=== PATIENT | female | born 1945 | race African-American/Black ===

== ENCOUNTER 2023-08-04 19:50 | Emergency (ER) | payer MEDICARE, OTHER, SELFPAY ==
[2023-08-04] VITALS (10 sets, daily range): BP systolic 168–215; BP diastolic 74–110; BMI 22.9
--- NOTE | 2023-08-04 20:40 | ED.GENMED ---
Addendum entered and electronically signed by Jonathon Gibson PA-C 08/08/23 15:13:
Urine culture demonstrates greater than 100,000 colony-forming units of E. coli. Attempted to call patient to relay this information however there was no answer. Left message
Original Note:
History of Present Illness
General
Chief Complaint: Dizziness
Source: patient
Exam Limitations: none
Time Seen by Provider: 08/04/23 20:19
Nursing documentation reviewed up to this point in time: agreed with
Travel History
Have you had any contact with someone who has COVID-19?: No
Do you have any symptoms of coronavirus? Fever > 100 degrees, chills, cough, shortness of breath, sore throat, loss of taste or smell, muscle aches, or headache?: No
History of Present Illness
History of Present Illness:
77-year-old female presents with dizziness onset yesterday showed a long day, her home felt dizzy worse when she stood and with some head movement, no dark or bloody stools symptoms returned today no headache no slurred speech no arm or leg
weakness, for a month or 2 she has a pain in her left arm with exertion tells me she had a slightly abnormal stress test on her most recent stress test she has a known valvular issue, suffers from high blood pressure, she has no headache she admits
to not sleeping well, related to her daughter in [place] being in a coma through the fall and then dying recently she has been dealing with the estate
Past History
Past History
ED Past Medical History: HTN and Valvular disease; Negative CAD
ED Past Surgical History: Cardiac (Cardiac catheter that revealed clean coronaries ) and
Social History
Tobacco: Non-smoker
Alcohol: None
Drug: None
Living: with family
Employment: Employed
Family History
Family History: Other (Daughter passed recently after protracted illness)
Review of Systems
Review of Systems
All Other Systems: Not applicable
Constitutional: Reports sleep disturbance; Denies fever or fatigue
EENT: Reports no symptoms
Respiratory: Reports no symptoms
Cardiac: Reports chest pain (Arm pain with exertion for months)
ABD/GI: Reports no symptoms; Denies abdominal pain, vomiting, bloody stools or black stools
: Reports no symptoms
Neurological: Reports dizzy; Denies headache or weakness
Hematologic/Lymphatic: Reports no symptoms; Denies bleeding or bruising
Psychiatric: Reports no symptoms
Phy Exam
Physical Exam
Physical Exam:
Physical Exam
General: no apparent distress, not acutely ill
Neck: No jaundice
Heart: Regular soft murmur
Lungs: no acute respiratory distress. clear bilaterally
Abdomen: Not tender
Neuro: alert and oriented. no focal neurological deficits
Skin: no rash
Psychiatric: well kept. interactive and cooperative
Extremities: no edema. no calf tenderness.
Scores
Heart Score for Chest Pain Patients
STEMI patient?: No
History: Moderately Suspicious
ECG: Normal
Age: >/= 65 years
Risk Factors: 1 or 2 Risk Factors
Troponin: </= Normal Limit
Heart Score for Chest Pain Patients: 4
Heart Score Risk: 20.3% MACE over next 6 weeks
Course
Orders/Labs/Results
Orders:
Orders
08/04/23 19:56
Electrocardiogram (*1) Urgent
Reason for Study: Vertigo / Dizzy
08/04/23 19:57
EKG- Treatment ONCE
08/04/23 20:38
Add On- LAB Urgent
Tests Added?: pBNP
HydrALAZINE [Apresoline] 5 mg IV NOW STA
08/04/23 20:53
Complete Blood Count/With Diff Urgent
Comprehensive Metabolic Panel Urgent
NT-proBNP Urgent
Comment: ADD ON
Troponin I Urgent
Urinalysis Reflex To Culture Urgent
Date Specimen was Collected: 08/04/23
Time Specimen was Collected: 20:00
Urine Microscopic Reflex Cult Urgent
Urine Culture Urgent
KELLI Source: U
Specimen Description:
Date Specimen was Collected: 08/04/23
Time Specimen was Collected: 20:00
08/04/23 22:31
Losartan [Cozaar] 50 mg PO NOW STA
Abnormal Lab Results
08/04/23
20:53
WBC 4.7 L 10^3/uL
(4.8-10.8)
RBC 3.89 L 10^6/uL
(4.20-5.40)
Hct 35.1 L %
(37.0-47.0)
MCH 31.1 H pg
(27.0-31.0)
MPV 10.5 H fL
(7.4-10.4)
BUN 18 H mg/dl
(7-17)
Leukocyte Esterase Rfl 2+ A
(Negative)
Urine WBC (Reflex) 11-15 A /HPF
(0-5)
08/04/23 20:53
08/04/23 20:53
Vital Signs
Initial and Last Documented VS:
Initial Vital Signs
Temp Pulse Resp BP Pulse Ox
99 F 70 16 212/102 98
08/04/23 19:53 08/04/23 19:53 08/04/23 19:53 08/04/23 19:53 08/04/23 19:53
Last Documented Vital Signs
Temp Pulse Resp BP Pulse Ox
99 F 75 16 168/74 98
08/04/23 19:53 08/04/23 22:55 08/04/23 19:53 08/04/23 22:55 08/04/23 19:56
MDM/Problems Addressed
Differential Diagnosis Includes:
Positional vertigo electrolyte abnormality anemia arrhythmia doubt CVA or mass, may have angina is a subacute issue
Could be related to accelerated hypertension, also may have some degree of anxiety through the illness and of her daughter
MDM/Problems Addressed:
Dizziness
Chronic conditions affecting care:
Hypertension valvular
*Critical Care Note
Total Time (30-74mins, 75-104mins- exclusive of procedures): Not Applicable
Update Note
Update Note:
11:40 PM patient states she is feeling better labs are noted prior echo noted
Blood pressure improved
Patient tells me she has discussed her arm pain with her clinical nursing assistant
Also tells me that her head custodian has recommended that she take cayenne pepper for the arm pain which she keeps with her works well for her
ED Attending Note
-
Portions of this chart may have been created with voice recognition software.� Occasional wrong word or��sound alike� substitutions may have occurred due to the inherent limitations of voice recognition software.
Discharge Plan
Departure
Patient Disposition: Home (Routine Discharge)
Date of Disposition: 08/04/23
Time of Disposition: 23:43
Patient with high blood pressure during this ER visit?: Yes
Condition: Good
Discharge Problem:
Hypertension, Dizziness
Instructions: Dizziness, Nonvertigo, (DC), BLOOD PRESSURE, Chest Pain DCA Follow Up
Prescriptions:
No Action
losartan 50 mg Tablet
50 mg PO BID
Referrals:
Aric Germain DO [Family Provider] - Next open appointment
Philip Gould DO [Active] - Next open appointment
Interventions
Interventions:
*Risk Screen - Suicide Last Done: 08/04/23 19:53
*General Assessment Last Done: 08/04/23 19:53
*Neglect/Abuse Screening Last Done: 08/04/23 19:53
ED- Fall Risk Assessment Last Done: 08/04/23 20:19
*ED COVID-19 Vaccine History Last Done: 08/04/23 20:56
ED- Neurological Assessment Last Done: 08/04/23 20:19
ED Swallowing Screen Last Done: 08/04/23 20:19
Discharge Date and Time
Print Language: DANISH
[2023-08-04] MEDS: APRESOLINE 5 MG IV (20:45)
[2023-08-04 21:00] LABS: % Basophils 1.1 % (0-2); % Eosinophils 4.2 % (0-6); % Immature Granulocytes 0.2 % (0-0.5); % Lymphocytes 36.1 % (20.5-51.1); % Monocytes 6.1 % (1.7-9.3); % Neutrophils 52.3 % (42.2-75.2); Absolute Basophils 0.1 10^3/uL (0-0.2); Absolute Eosinophils 0.2 10^3/uL (0-0.7); Absolute Lymphocytes 1.7 10^3/uL (1.2-3.4); Absolute Monocytes 0.3 10^3/uL (0.1-0.6); Absolute Neutrophils 2.5 10^3/uL (1.4-6.5); Hematocrit 35.1 % (37.0-47.0); Hemoglobin 12.1 g/dL (12.0-16.0); Mean Corp Hgb Conc. 34.5 g/dL (33.0-37.0); Mean Corpuscular Hgb 31.1 pg (27.0-31.0); Mean Corpuscular Volume 90.2 fL (81.0-99.0); Mean Platelet Volume 10.5 fL (7.4-10.4); Nucleated Red Blood Cells % 0 %; Platelet Count 201 10^3/uL (130-400); Red Blood Cell Count 3.89 10^6/uL (4.20-5.40); Urine Albumin Negative (Neg - Trace); Urine Bilirubin Negative (Negative); Urine Character Clear (Clear); Urine Color Yellow; Urine Glucose Negative (Negative); Urine Ketone Negative (Negative); Urine Leukocyte 2+ (Negative); Urine Nitrite Negative (Negative); Urine Occult Blood Negative (Negative); Urine Urobilinogen Negative (Neg - 1+); White Blood Cell Count 4.7 10^3/uL (4.8-10.8)
[2023-08-04 21:13] LABS: ALT (SGPT) 13 U/L (0-35); AST (SGOT) 24 U/L (14-36); Albumin 4.4 g/dl (3.5-5.0); Alkaline Phosphatase 56 U/L (38-126); Blood Urea Nitrogen 18 mg/dl (7-17); Calcium 9.9 mg/dl (8.4-10.2); Carbon Dioxide 27 mmol/L (22-30); Chloride 101 mmol/L (98-107); Estimated Creatinine Clearance 73 ml/min; Glucose 90 mg/dl (70-99); Potassium 3.5 mmol/L (3.5-5.1); Sodium 138 mmol/L (135-145); Total Bilirubin 0.7 mg/dl (0.2-1.3); Total Protein 7.1 g/dl (6.3-8.2); eGFR > 60.00
[2023-08-04 21:15] LABS: Urine Red Blood Cell None Seen /HPF (0-2); Urine Squamous Cell 0-2 /LPF (Few); Urine Urothelial Cell 0-2 /LPF (FEW)
[2023-08-04 21:22] LABS: NT-proBNP 141 pg/ml; Troponin I 0.021 ng/ml
[2023-08-04] MEDS: COZAAR 50 MG PO (22:55)
[2023-08-05] VITALS: BP 161/72
[2023-08-05 00:20] VITALS: BP 161/72
== END 2023-08-05 00:20 | disposition home or self-care (01) ==
LOC: EMR 19:50
PROVIDERS: Emergency Medicine; EMERGENCY PHYSICIAN Emergency Medicine; FAMILY PHYSICIAN Family Medicine
DX: R42 Dizziness and giddiness (principal); I10 Essential (primary) hypertension
CPT/HCPCS: 99284; 96374; 80053; 81003; 81015; 83880; 84484; 85025; 87077; 87086; 87186; 93005

== ENCOUNTER → 2023-08-26 07:23 | Outpatient (REF) | payer MEDICARE, OTHER, SELFPAY | LOC: HWRCS 07:23 | PROVIDERS: ATTENDING PHYSICIAN Nuclear Medicine Nuclear Cardiology; FAMILY PHYSICIAN Family Medicine | DX: I10 Essential (primary) hypertension (principal); R93.1 Abnormal findings on diagnostic imaging of heart and coronary circulation; I34.0 Nonrheumatic mitral (valve) insufficiency | CPT/HCPCS: 93306 ==

== ENCOUNTER 2024-02-17 20:14 | Emergency (ER) | payer MEDICARE, OTHER, SELFPAY ==
[2024-02-17 20:19] VITALS: BP 208/107
[2024-02-17 20:39] LABS: % Basophils 1.3 % (0-2); % Eosinophils 7.7 % (0-6); % Immature Granulocytes 0.2 % (0-0.5); % Lymphocytes 44.8 % (20.5-51.1); % Monocytes 8.1 % (1.7-9.3); % Neutrophils 37.9 % (42.2-75.2); Absolute Basophils 0.1 10^3/uL (0-0.2); Absolute Eosinophils 0.4 10^3/uL (0-0.7); Absolute Lymphocytes 2.1 10^3/uL (1.2-3.4); Absolute Monocytes 0.4 10^3/uL (0.1-0.6); Absolute Neutrophils 1.8 10^3/uL (1.4-6.5); Hematocrit 36.4 % (37.0-47.0); Hemoglobin 12.7 g/dL (12.0-16.0); Mean Corp Hgb Conc. 34.9 g/dL (33.0-37.0); Mean Corpuscular Hgb 31.1 pg (27.0-31.0); Mean Platelet Volume 10.5 fL (7.4-10.4); Nucleated Red Blood Cells % 0 %; Platelet Count 230 10^3/uL (130-400); Red Blood Cell Count 4.09 10^6/uL (4.20-5.40); Red Cell Dist. Width 12.2 % (11.5-14.5); White Blood Cell Count 4.7 10^3/uL (4.8-10.8)
[2024-02-17 20:53] LABS: ALT (SGPT) 16 U/L (0-35); AST (SGOT) 25 U/L (14-36); Albumin 4.5 g/dl (3.5-5.0); Alkaline Phosphatase 50 U/L (38-126); Blood Urea Nitrogen 21 mg/dl (7-17); Calcium 9.8 mg/dl (8.4-10.2); Carbon Dioxide 29 mmol/L (22-30); Chloride 103 mmol/L (98-107); Glucose 89 mg/dl (70-99); Potassium 3.8 mmol/L (3.5-5.1); Sodium 141 mmol/L (135-145); Total Bilirubin 0.5 mg/dl (0.2-1.3); Total Protein 7.3 g/dl (6.3-8.2); eGFR > 60.00
[2024-02-17 21:01] LABS: NT-proBNP 166 pg/ml
[2024-02-17 23:34] VITALS: BP 200/85
[2024-02-18] VITALS: BP 200/99
[2024-02-18 00:13] LABS: Troponin I 0.016 ng/ml
--- NOTE | 2024-02-18 00:24 | ED.GENMED ---
History of Present Illness
General
Chief Complaint: Cough
Source: patient
Exam Limitations: none
Time Seen by Provider: 02/17/24 23:23
History of Present Illness
History of Present Illness:
This is a 78 year old female that comes in with c/o SOB. States that she has had this non productive cough. States that today she went up the steps and had to walk 1/2 a block to her car. States that by the time she got to her car she could hardly
get in the car as she was exhausted. States that she has had a cough and SOB. States that this all started year ago after she had to go to [place] for her daughter as she had TBI. States that her Daughter in June. States that she was
told by the public transit specialist that her body was under stress and that this was causing her cough. Denies any fever, chills, chest pain, abd pain, nausea, vomiting, diarrhea, headache, dizziness, urinary burning.
Past History
Past History
ED Past Medical History: HTN, Hypercholesterolemia, Valvular disease and Other (Glaucoma); Negative CAD
ED Past Surgical History: Cardiac (Cardiac catheter that revealed clean coronaries ) and
Social History
Tobacco: Non-smoker
Alcohol: None
Drug: None
Personal: Single
Living: alone
Employment: Employed
Family History
Family History: Other (Daughter passed recently after protracted illness)
Review of Systems
Review of Systems
All Other Systems: ROS reviewed and negative except as documented in HPI and ROS
Constitutional: Reports no symptoms; Denies fever or chills
EENT: Reports no symptoms
Respiratory: Reports cough and trouble breathing
Cardiac: Reports no symptoms; Denies chest pain
ABD/GI: Reports no symptoms; Denies abdominal pain, nausea, vomiting or diarrhea
: Reports no symptoms; Denies dysuria, frequency or urgency
Musculoskeletal: Reports no symptoms
Skin: Reports no symptoms
Neurological: Reports no symptoms; Denies dizzy or headache
Psychiatric: Reports no symptoms
Phy Exam
General Physical Exam
General Presentation: well appearing and no apparent distress
General age: appears stated age
General Skin: warm and dry
General Habitus: elderly
General Mental: alert
General Hydration: appears well hydrated
ENT Exam
ENT Exam: TM's normal, pharynx normal and neck supple
Eye Exam
Eye Exam: EOMI
Cardiovascular Exam
Cardiovascular Exam: regular rate/rhythm, no edema, no murmur and normal peripheral pulses
Pulmonary Exam
Pulmonary Exam: lungs clear, no respiratory distress, no rales, chest non tender, no crackles, no rhonchi, no wheezing and no cough
Gastrointestinal Exam
Gastrointestinal Exam: normal bowel sounds, non tender, soft, no organomegaly, no pulsatile mass and non distended
Musculoskeletal Exam
Musculoskeletal Exam: full ROM and no edema
Skin Exam
Skin Exam: normal color, warm/dry, no rash and no petechia
Psychiatric Exam
Psychiatric Exam: normal mood/affect
Course
Orders/Labs/Results
Orders:
Orders
02/17/24 20:22
Electrocardiogram (*1) Urgent
Reason for Study: Other
Other Reason for Exam: Respiratory Distress
Cardiac Monitoring- Treatment ONCE
EKG- Treatment ONCE
IV Insert/Care/Rem.- Treatment PRN
CR Chest - 2 Views Urgent
Comment:
Reason For Exam: respiratory distress
O2 Therapy [RESP] Urgent
Titrate/Wean O2 to maintain O2 sat greater than (%): 93
Special Instructions: TO MAINTAIN CONTINUOUS O2 SATS >/= 93%
Pulse Ox/cont/shift [RESP] Urgent
Quantity: 1
Special Instructions: continuous pulse ox
02/17/24 20:28
Complete Blood Count/With Diff Urgent
Comprehensive Metabolic Panel Urgent
NT-proBNP Urgent
Troponin I Urgent
Comment: ADD ON
02/17/24 23:26
Add On- LAB Urgent
Tests Added?: troponin
02/18/24 00:24
Losartan [Cozaar] 50 mg PO NOW STA
02/18/24 00:31
COVID-19 Antigen Urgent
Source: Nasal Swab
Abnormal Lab Results
02/17/24
20:28
WBC 4.7 L 10^3/uL
(4.8-10.8)
RBC 4.09 L 10^6/uL
(4.20-5.40)
Hct 36.4 L %
(37.0-47.0)
MCH 31.1 H pg
(27.0-31.0)
MPV 10.5 H fL
(7.4-10.4)
Neutrophils % 37.9 L %
(42.2-75.2)
Eosinophils % 7.7 H %
(0-6)
BUN 21 H mg/dl
(7-17)
02/17/24 20:28
02/17/24 20:28
Very slight Dehydration. Pro-BNP 166, Troponin 0.016 COVID negative.
Vital Signs
Initial and Last Documented VS:
Initial Vital Signs
Temp Pulse Resp BP Pulse Ox
98.5 F 73 19 208/107 98
02/17/24 20:19 02/17/24 20:19 02/17/24 20:19 02/17/24 20:19 02/17/24 20:19
Last Documented Vital Signs
Temp Pulse Resp BP Pulse Ox
98.5 F 81 17 191/76 96
02/17/24 20:19 02/18/24 01:18 02/18/24 01:18 02/18/24 01:00 02/18/24 01:18
MDM/Problems Addressed
Differential Diagnosis Includes:
Chronic cough. COVID, SOB
MDM/Problems Addressed:
This is a 78 year old female that comes in with c/o cough and SOB. States that the cough started a year ago and she was told that her body was under stress. Today she had to walk to her car and was SOB and coughing by the time she got there.
Will check labs, Chest x-ray COVID.
Back into see patient. Explained that her blood work show very slight Dehydration. Her Troponin is normal along with the Pro-BNP. COVID is negative. Patient to follow up with the Manufacturing Operator and her chemical operations specialist. Return with any concerns.
Chronic conditions affecting care:
SOB
Acute Exacerbation and/or Progression of Chronic Illness:
SOB
*Radiology
Radiology exam reviewed: preliminary read by ED provider (Chest- Negative for active disease. )
*Pulse Oximetry
Patient hypoxic: no
*EKG
Interpreted by ED Provider?: Yes
Heart Rate: 65
Rate: normal
Rhythm: sinus
[place]: normal axis
Interval: normal interval
QRS Pattern: normal QRS
Ischemia: no ischemia
*Logistics Lead Interpretation
Rate: Logistics Lead- N/A
*Critical Care Note
Total Time (30-74mins, 75-104mins- exclusive of procedures): Not Applicable
ED Attending Note
-
Portions of this chart may have been created with voice recognition software.� Occasional wrong word or��sound alike� substitutions may have occurred due to the inherent limitations of voice recognition software.
Discharge Plan
Departure
Patient Disposition: Home (Routine Discharge)
Date of Disposition: 02/18/24
Time of Disposition: 01:53
Patient with high blood pressure during this ER visit?: Yes
Condition: Good
Covid-19: Negative COVID-19
Discharge Problem:
Cough in adult, Shortness of breath
Instructions: Cough, Adult (DC), Shortness of Breath, Adult ED, BLOOD PRESSURE
Prescriptions:
No Action
losartan 50 mg Tablet
50 mg PO BID
Referrals:
Aric Germain, [Family Provider] - Call in 1-3 days for appt
Activity Restrictions/Additional Instructions:
As discussed, your blood work shows very sight Dehydration. Your Chest x-ray is negative. You are negative for COVID. Please follow up with the Manufacturing Operator and your public transit specialist for further evaluation. IF YOU HAVE ANY OTHER CONCERNS PLEASE
RETURN TO THE EMERGENCY ROOM.
Interventions
Interventions:
*Risk Screen - Suicide Last Done: 02/17/24 20:19
*General Assessment Last Done: 02/17/24 23:16
*Neglect/Abuse Screening Last Done: 02/17/24 20:19
*ED COVID-19 Vaccine History Last Done: 02/17/24 23:16
ED- Pulmonary Assessment Last Done: 02/17/24 23:18
Discharge Date and Time
Print Language: YAKUT
[2024-02-18] MEDS: COZAAR 50 MG PO (00:29)
[2024-02-18 00:52] LABS: COVID-19 Antigen Negative (Negative)
[2024-02-18 01:00] VITALS: BP 191/76
[2024-02-18 01:47] VITALS: BP 172/80
== END 2024-02-18 02:04 | disposition home or self-care (01) ==
LOC: EMR 20:14
PROVIDERS: Clinical Nurse Specialist Family Health; Emergency Medicine; EMERGENCY PHYSICIAN Emergency Medicine; FAMILY PHYSICIAN Family Medicine
DX: R05.9 Cough, unspecified (principal); R06.02 Shortness of breath; I10 Essential (primary) hypertension; E78.00 Pure hypercholesterolemia, unspecified
CPT/HCPCS: 99285; 71046; 80053; 83880; 84484; 85025; 87811; 93005

== ENCOUNTER → 2024-05-20 07:46 | Outpatient (REF) | payer MEDICARE, OTHER, SELFPAY | LOC: HWRAD 07:46 | PROVIDERS: ATTENDING PHYSICIAN Nuclear Medicine Nuclear Cardiology; FAMILY PHYSICIAN Family Medicine | DX: I77.9 Disorder of arteries and arterioles, unspecified (principal); R09.89 Other specified symptoms and signs involving the circulatory and respiratory systems | CPT/HCPCS: 93880 ==

== ENCOUNTER → 2024-07-28 07:38 | Outpatient (REF) | payer MEDICARE, OTHER, SELFPAY | LOC: HWRCS 07:38 | PROVIDERS: ATTENDING PHYSICIAN Nuclear Medicine Nuclear Cardiology; FAMILY PHYSICIAN Family Medicine | DX: I49.3 Ventricular premature depolarization (principal); I10 Essential (primary) hypertension; R93.1 Abnormal findings on diagnostic imaging of heart and coronary circulation; R06.02 Shortness of breath | CPT/HCPCS: 78452; 93017; A9500; J2785 ==

== ENCOUNTER → 2024-08-17 08:25 | Outpatient (REF) | payer MEDICARE, OTHER, SELFPAY | LOC: HWRCS 08:25 | PROVIDERS: ATTENDING PHYSICIAN Nuclear Medicine Nuclear Cardiology; FAMILY PHYSICIAN Family Medicine | DX: I49.3 Ventricular premature depolarization (principal); I10 Essential (primary) hypertension; I34.0 Nonrheumatic mitral (valve) insufficiency | CPT/HCPCS: 93306 ==

== ENCOUNTER 2025-02-03 06:35 | Day surgery (SDC) | payer MEDICARE, OTHER, SELFPAY ==
[2025-02-03] VITALS (19 sets, daily range): BP systolic 142–204; BP diastolic 79–118; BMI 24.0
[2025-02-03] MEDS: LOW STRENGTH ASPIRIN 324 MG PO (07:30)
[2025-02-03] MEDS: NSS 221 ML IV (07:33)
[2025-02-03] MEDS: LIPITOR 40 MG PO (10:24)
[2025-02-03] MEDS: NORVASC 2.5 MG PO (10:25)
--- NOTE | 2025-02-03 13:20 | PTCARENOTE ---
Pt Krishna was attempting to get dressed for discharge. Pt was heard behind curtain bumping into IV pole and recliner chair. Pt was found lying against radial lounge wall. Pt was assisted back into chair by CCL staffx3. Pt was completely AAOx3. Pt
claimed to have stumbled while attempting to put on underpants. Pt was assesed by Arun MARKHAM. Vital signs will be monitored for approx. 30 minutes to evaluate for discharge.
--- NOTE | 2025-02-03 13:58 | W.PN.UPDATE ---
Update Note
Progress Note Update
CTSP as pt was getting dressed to leave she slid down the wall onto the floor. She denies any trauma and did not hit her head. She has a small abrasion without bleeding on her left upper back. Her BP was elevated initially at 200/100's. We monitored
her for an additional 30 min, rad site stable, bp down to 150/90 prior to d/c home. Dr. Bhatia aware.
--- NOTE | 2025-02-03 14:00 | PTCARENOTE ---
Pt held and observed while monitoring vitals. Pt showed no ill effects from previous fall while getting dressed. Pt cleared for discharge by Arun MARKHAM.
--- NOTE | 2025-02-03 14:04 | ITS.CL.CATH ---
[facility] [employer] - Catheterization
Cardiac Catheterization
Procedure Report:
LEFT HEART CATHETERIZATION
Date of Procedure: February 03, 2025
Referring: Kristyn Wong and Stacy Gandara PA-C
PROCEDURES:
1. Left heart catheterization, coronary angiogram.
2. Moderate sedation.
3. Right heart catheterization.
INDICATION: Ongoing dyspnea on exertion
ACCESS: Right radial artery, 6Fr. sheath, under US guidance.
Right brachial vein, 6 Greek sheath, under ultrasound guidance
HEMODYNAMICS : (mmHg)
RA (m) : 10
RV (s/d,m) : 40/6, 13
PA (s/d, m) : 34/16, 23
PCWP (m) : 21
PA saturation: 69.3% on room air
AO saturation: 95.1% on room air
RA saturation: 72% on room air
Cardiac Output : 4.43 L/min by Kota calculation
Cardiac Index : 2.35 L/min/m-2 by Ktoa calculation
Systemic vascular resistance: 2168 dsc^(-5)
Pulmonary vascular resistance: 2.26 naik unit
AO (s/d) : 175/78
LVEDP : 29
No significant gradient across the aortic valve to suggest aortic stenosis.
CORONARY FINDINGS: Severely tortuous coronary arteries.
Dominance: Right
Left Main Trunk (LMT): Large caliber vessel that gives rise to the LAD and LCx branches. Distal left main has eccentric hazy calcified 70% stenosis.
Left Anterior Descending Artery (LAD): Large caliber vessel that gives off 2 major diagonal branches as it courses along the anterior inter-ventricular groove before wrapping around the cardiac apex. Proximal to mid LAD has mild to moderate
diffuse atherosclerotic plaque. There is [id number] collaterals.
Left Circumflex Artery (LCx): Large caliber vessel that gives off 2 major obtuse marginal (OM) branches as it courses along the atrio-ventricular (AV) groove. 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
Right Coronary Artery (RCA): Medium caliber dominant vessel that gives rise to the posterior descending artery (RPDA) and postero-lateral ventricular (RPLV) branches distally. Mid LAD has 100% chronic total occlusion with robust collaterals from
left to right.
SEDATION: 47 minutes of procedural sedation was utilized. IV Midazolam and IV Fentanyl were administered. An independent medical unit secretary was present to assist with and help manage the patient's level of consciousness and physiologic status.
RADIATION SUMMARY: Fluoro Time (min): 8.6 Dose (mGy): 368.95, DAP (Gy.cm2) : 20.5
Closure Device: There were no immediate intra-procedural complications. The sheath was pulled in the metallurgical laboratory assistant and a vascular-band applied to the right wrist for radial artery hemostasis using the patent hemostasis technique.
CONCLUSIONS
1. 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
2. Mildly elevated right and left-sided filling pressures with normal cardiac output.
3. LVEDP of 29 mmHg.
RECOMMENDATIONS
1. Wean radial band per protocol. Monitor right hand perfusion and for bleeding from the radial site following removal of the vascular-band following trans-radial access.
2. Continue aggressive medical therapy and risk factor modification for secondary CAD prevention.
3. Hydrate with normal saline to mitigate the risk of contrast-induced acute kidney injury.
4. CT surgery consult for coronary artery bypass grafting to LAD/Diag, left circumflex/OM and RPDA as feasible.
Kelly Quinn MD, FACC, [facility]
Copy to: Kristyn Wong. and Stacy Gandara PA-C
== END 2025-02-03 13:55 | disposition home or self-care (01) ==
LOC: CATH 06:35
PROVIDERS: ATTENDING PHYSICIAN Internal Medicine Interventional Cardiology; FAMILY PHYSICIAN Family Medicine; OTHER PHYSICIAN Nuclear Medicine Nuclear Cardiology
DX: I25.10 Atherosclerotic heart disease of native coronary artery without angina pectoris (principal); R06.09 Other forms of dyspnea; I10 Essential (primary) hypertension; R07.9 Chest pain, unspecified; R93.1 Abnormal findings on diagnostic imaging of heart and coronary circulation; E77.9 Disorder of glycoprotein metabolism, unspecified; I47.29 Other ventricular tachycardia
CPT/HCPCS: 99152; 99153; 93460; C1769; C1894; Q9967

== ENCOUNTER → 2025-02-20 13:54 | Outpatient (REF) | payer MEDICARE, OTHER, SELFPAY | LOC: HWRAD 13:54 | PROVIDERS: ATTENDING PHYSICIAN Thoracic Surgery (Cardiothoracic Vascular Surgery); FAMILY PHYSICIAN Family Medicine | DX: Z78.9 Other specified health status (principal); Z01.818 Encounter for other preprocedural examination | CPT/HCPCS: 71250 ==